=== PATIENT | male | born 1970 | race Caucasian/White ===

== ENCOUNTER 2023-08-02 08:57 | Observation (INO) | payer BC, SELFPAY ==
[2023-08-02] VITALS (25 sets, daily range): BP systolic 126–160; BP diastolic 62–94; PULSE 67–105; RESP 15–24; TEMP 36.7–37.1; O2SAT 96–100; BMI 35.9
--- NOTE | ~2023-08-02 | MR_ITS ---
EXAMINATION: MR brain/brain stem wo/w con DATE: 08/03/2023 10:35 INDICATION: Seizure TECHNIQUE: Magnetic resonance imaging (MRI) of the brain and brainstem was performed without and with 20 mL Multihance intravenous contrast. Sequences included sagittal and axial T1-weighted SE, axial d iffusion-weighted FS SE, axial 3D SWAN, axial T2-weighted FLAIR, and axial T2-weighted FSE. Postcontr ast axial and coronal T1-weighted SE was obtained. Apparent diffusion coefficient (ADC) maps were cre ated. COMPARISON: Head CT dated 08/02/2023 FINDINGS: There are no areas of restricted diffusion to suggest acute infarction. No intracranial hemorrhage or abnormal intracranial mass lesion. There are scattered areas of nonspecific increased T2-weighted si gnal intensity in the cerebral white matter, predominantly involving the deep and periventricular whi te matter. There are no intraparenchymal signal abnormalities seen on the other pulse sequences. The ventricles are symmetric and normal in size. There are no abnormal extra-axial fluid collections. Clyde w voids are seen in the cerebral arteries on the T2-weighted sequences consistent with their expected patency. Visualized orbits and soft tissues are unremarkable. There are no areas of abnormal enhance ment on the post contrast images. IMPRESSION: 1. Normal aging brain. No acute intracranial process or abnormally enhancing brain lesions. Reviewed, dictated and finalized at location A. IMPRESSION: 1. Normal aging brain. No acute intracranial process or abnormally enhancing br ain lesions.
--- NOTE | ~2023-08-02 | CT_ITS ---
EXAMINATION: CT BRAIN W/O DATE: 08/02/2023 09:26 INDICATION: Seizures. TECHNIQUE: Computed tomography (CT) of the head was performed without intravenous contrast. The dose- length product was 605.33 mGy-cm. Automated exposure control and iterative reconstruction technique w ere employed. COMPARISON: No prior studies for comparison. FINDINGS: Mildly decreased brain parenchymal volume for age. Normal zhu-white differentiation. No ac kellen intracranial hemorrhage, infarction, mass or mass effect. Prominent cisterna magna. No ventriculomegaly or midline shift. Midline sagittal images demonstrate a normal corpus callosum, c raniovertebral junction and sella turcica. Basilar cisterns are patent. Paranasal sinuses and mastoids are pneumatized. No depressed skull fractures. IMPRESSION: 1. No acute intracranial abnormality. Reviewed, dictated and finalized at location A.
--- NOTE | 2023-08-02 09:01 | ED.SEIZURE ---
HPI - Seizure General Chief Complaint: Seizure Stated Complaint: SZ Time Seen by Provider: 08/02/23 08:58 History of Present Illness HPI Narrative: Patient is a 52-year-old male who presents ER after having a seizure. Patient was standing at his refrigerator when he began to shake. He then had his arms move into flexion and he fell backwards onto the ground. He had a 1 minute seizure witnessed by significant other. He had loss of urine and was immediately postictal. He did experience tongue biting. No history of previous surgery. Patient reports she has been feeling dizzy and lightheaded and nauseous for several days. He has been unable to sleep over the last 24 hours. No fevers or chills or sweats. Patient has history of melanoma that was excised in 2005 and also had some lymph nodes dissected. Reports he has had no issues since then. Related Data Home Medications Medication Instructions Recorded Confirmed Centrum Silver Men 1 tablet PO DAILY 08/02/23 08/02/23 Allergies Allergy/AdvReac Type Severity Reaction Status Date / Time No Known Allergies Allergy Verified 08/02/23 09:05 Review of Systems Review of Systems: All systems reviewed & are unremarkable except as noted in HPI and below Constitutional: Constitutional: Denies chills and Denies fever(s) ENT: Denies nasal congestion and Denies sore throat Cardiovascular: Cardiovascular: Denies chest pain, Denies rapid heart rate and Denies radiating jaw, neck or arm pain Respiratory: Respiratory: Denies cough and Denies dyspnea Gastrointestinal: Gastrointestinal: Denies abdominal pain, Reports nausea and Denies vomiting Neurologic: Reports dizziness, Denies headache(s), Denies focal weakness and Denies numbness Comments: +Seizure PMFSH Past Medical History Medical History Anemia Dyslipidemia HTN (hypertension), benign Melanoma MARTIN (obstructive sleep apnea) Screening for colon cancer Screening PSA (prostate specific antigen) Transaminitis Surgical History Surgical History History of melanoma excision Social History Social History Smoking status: Never smoker Alcohol intake: former Drinks per week: 12 Substance use: never Lack of Transportation: No Lack of Food: Never True Current Housing: I Have Housing Concerned About Future Housing: No Difficulty Paying Gas/Electric Bills: No Difficulty Paying for Meds: No Currently Unemployed: No Education: High School Diploma/GED Difficulty w/ Childcare or Family Care: No Living arrangements: with family Occupation/Education: occupation Gender identity (if verbalized by the patient): Male Spiritual care concerns: No Exam Narrative: GENERAL: Well-appearing, well-nourished, and in no acute distress. HEAD: Normocephalic, atraumatic. EYES: PERRL and EOMI. ENT: Mucous membranes moist. Evidence of tongue biting without laceration. Dried blood to upper lip. CHEST: Clear to auscultation. No respiratory distress. HEART: Regular rate and rhythm. Normal peripheral pulses. ABDOMEN: Soft, nontender, nondistended. EXTREMITIES: Normal range of motion. No edema. SKIN: Warm, dry, no rash. NEURO: Alert and oriented x3. PSYCH: Normal mood and affect. Course Course Emergency Course: Patient resting comfortably. Informed of results. Discussed case with Dr. Sparrow. Will admit for observation. Started on Keppra. Vital Signs Vital signs: Vital Signs Temperature 98.3 F 08/02/23 08:46 Pulse Rate 100 08/02/23 08:46 Respiratory Rate 16 08/02/23 08:46 Blood Pressure 155/89 H 08/02/23 08:46 Pulse Oximetry 96 08/02/23 08:46 Oxygen Delivery Room Air 08/02/23 08:46 Temperature 98.1 F 08/02/23 14:10 Pulse Rate 84 08/02/23 16:00 Respiratory Rate 16 08/02/23 14:10 Blo
--- NOTE | 2023-08-02 09:07 | ECG_ITS ---
Measurements Intervals [place] Rate: 94 P: 53 NC: 167 QRS: 22 QRSD: 100 T: 51 QT: 382 QTc: 478 Interpretive Statements SINUS RHYTHM WITH SINUS ARRHYTHMIA POSSIBLE LEFT ATRIAL ENLARGEMENT [-0.1mV P WAVE IN V1/V2] NONSPECIFIC ST SEGMENT ABNORMALITY ABNORMAL ECG NO PREVIOUS ECG AVAILABLE FOR COMPARISON Electronically Signed On 08-03-2023 6:56:30 CDT by Lennox Quintana M.D.
[2023-08-02 09:15] LABS: Basophils Percent Auto 0.4 % (0.2-1.2); Eosinophils Percent Auto 0.4 % (0-4.4); Hematocrit 43.5 % (42.0-52.0); Hemoglobin 14.1 g/dL (14.0-18.0); Immature Granulocyte Absolute 0.02 K/mm3 (0.00-0.031); Immature Granulocyte Percent A 0.2 % (0-0.5); Immature Platelet Fraction Pct 3.3 % (0.9-11.2); Lymphocytes Absolute Auto 1.06 K/mm3 (0.9-3.2); Mean Corpuscular HGB Conc 32.4 g/dl (32-36); Mean Corpuscular Hemoglobin 29.1 pg (26-34); Mean Corpuscular Volume 89.7 fl (80-100); Mean Platelet Volume 9.2 fl (7.4-10.4); Monocytes Absolute Auto 0.5 K/mm3 (0.1-0.6); Neutrophils Absolute Auto 6.6 K/mm3 (1.3-6.7); Platelet Count Result 104 k/mm3 (150-375); Red Blood Count 4.85 M/mm3 (4.6-6.20); Red Cell Distribution Width 15.7 % (11.5-14.5); White Blood Count 8.2 K/mm3 (4.5-10.0)
[2023-08-02 09:23] LABS: INR 0.9; Partial Thromboplastin Time 24.9 SECONDS (22.3-36.8); Prothrombin Time 13.1 Seconds (11.1-14.7)
[2023-08-02] MEDS: SODIUM CHLORIDE 0.9% IV 1,000 ML 999 ML IV CONT (09:29)
[2023-08-02 09:52] LABS: Bilirubin,Total 1.6 mg/dL (0.2-1.3)
[2023-08-02 09:54] LABS: Ethanol < 10 mg/dL (<10)
[2023-08-02 10:30] LABS: Bacteria Urine None Seen /hpf; Squamous Epithelial Cell Urine None seen /hpf (Few); WBC Urine 0-5 /hpf
[2023-08-02 10:34] LABS: Appearance Urine Clear (Clear); Bilirubin Urine 1+ (Negative); Blood Urine Negative (Negative); Color Urine Orange (Yellow); Glucose Urine UA Negative (Negative); Ketones Urine 2+ mg/dL (Negative); Leukocyte Esterase Ur Trace LEU/UL (Negative); Nitrate Urine Negative (Negative); Protein Urine 2+ mg/dL (Negative); Specific Grav Ur 1.025 (1.001-1.035); pH Urine 7.5 (5.0-9.0)
[2023-08-02 10:35] LABS: Add Urine Microscopic? YES
[2023-08-02 10:43] LABS: Alanine Aminotransferase 42 U/L (6-50); Albumin Level 4.6 g/dL (3.5-5.1); Alkaline Phosphatase 64 U/L (38-126); Anion Gap 10 mmol/L (8-16); Aspartate Amino Transferase 58 U/L (17-59); Blood Urea Nitrogen 10 mg/dL (9-20); Calcium 9.5 mg/dL (8.4-10.2); Carbon Dioxide 26 mmol/L (22-30); Chloride 99 mmol/L (98-107); Estimated CRCL calculation 165 ml/min; Estimated Glomerular Filt Rate > 60; Glucose 196 mg/dL (65-110); Potassium 3.1 mmol/L (3.4-5.0); Sodium 135 mmol/L (137-145)
[2023-08-02 11:06] LABS: Amphetamine Screen Urine Negative (Negative); Barbiturate Screen Urine Negative (Negative); Benzodiazepines Screen Urine Negative (Negative); Cannabinoid Screen Urine Negative (Negative); Cocaine Screen Urine Negative (Negative); Methadone Screen Urine Negative (Negative); Opiate Screen Urine Negative (Negative); Phencyclidine Screen Urine Negative (Negative)
[2023-08-02] MEDS: levETIRAcetam 1000MG/NACL100ML 1,000 MG/100 ML BAG 400 MG IVPB (11:36)
--- NOTE | 2023-08-02 12:52 | PC.NURSE ---
This patient, Samm Kirkland, was admitted to Medical Room 256-01. Patient/family oriented to hospital policies and general routines including ID bracelet, bed and alarms, visiting hours, pain management, procedures, bathroom and other care routines, personal items, smoking policy, room service/diet, and visiting hours. Information on how to activate the Rapid Response Team has been discussed. Patient/Family are encouraged to report perceived risks to care and to ask questions if they do not understand what they are told or what they should do.
--- NOTE | 2023-08-02 12:56 | PM.IMHP ---
H&P: HPI History of Present Illness Date/Time: 08/02/23 12:56 Chief Complaint: New onset Seizure activity Narrative: This is a 52-year-old male patient with a past history of hypertension high cholesterol and obstructive sleep apnea who is admitted to the hospital for new onset seizure activity. Patient reports that over the last 1 year he has been having problems with recurrent nausea and vomiting and he had a particularly bad episode yesterday. Patient notes that when he has these episodes of vomiting keeping he will often feel shaky. Today patient was in the kitchen trying to put on his shoes whenever he had a witnessed episode of seizure with loss of consciousness full body shaking bit his tongue and incontinent of urine. Patient has never had seizure activity before. Patient's noted that patient was clutching his chest during his seizure activity the patient denies any chest pain shortness a breath at this time. Patient also denies any nausea at this time. He denies any pain or injury. He notes that he felt a lot better this morning than he did the past 2 days so came as a surprise that this would happen today instead of previously. Patient states he has barely had any fluids over the last 2 days and no food. He has also not slept at all in over 2 days. Again no prior episodes of loss of consciousness with full body seizure activity that he is aware of. Patient is intermittently compliant with his blood pressure medications and anticholesterol medication. He does not wear his CPAP any longer. Patient did quit drinking over 6 months ago and has been abstinent since. Previously he states that he was a heavy alcohol user. Patient does not smoke. His only surgery is melanoma removal with lymph node dissection right upper extremity. Review of Systems Review of Systems: All systems reviewed & are unremarkable except as noted in HPI and below PMFSH Past Medical History Medical History Anemia Dyslipidemia HTN (hypertension), benign Melanoma MARTIN (obstructive sleep apnea) Screening for colon cancer Screening PSA (prostate specific antigen) Transaminitis Surgical History Surgical History History of melanoma excision Social History Social History Smoking status: Never smoker Alcohol intake: current Drinks per week: 12 Substance use: never Living arrangements: with family Occupation/Education: occupation Gender identity (if verbalized by the patient): Male Meds Home Medications and Allergies Home Medications Medication Instructions Recorded Confirmed Type amlodipine 5 mg-olmesartan 20 mg 1 tablet PO DAILY #30 tabs 06/16/23 08/02/23 Rx tablet (Karen) nebivolol 10 mg tablet (Bystolic) 10 mg PO DAILY #30 tabs 06/16/23 08/02/23 Rx rosuvastatin 10 mg tablet (Crestor) 10 mg PO DAILY #30 tabs 06/16/23 08/02/23 Rx Centrum Silver Men 1 tablet PO DAILY 08/02/23 08/02/23 History Allergies Allergy/AdvReac Type Severity Reaction Status Date / Time No Known Allergies Allergy Verified 08/02/23 09:05 Vital Signs Vital Signs - 24 hr 08/02/23 08:46 08/02/23 09:08 08/02/23 09:10 Temperature 36.8 C Pulse Rate 100 100 99 Respiratory Rate 16 18 Blood Pressure 155/89 H Pulse Oximetry 96 97 Oxygen Delivery Room Air 08/02/23 09:15 08/02/23 09:16 08/02/23 09:30 Temperature Pulse Rate 100 96 Respiratory Rate 22 H 21 H 23 H Blood Pressure 130/94 H Pulse Oximetry 99 99 96 Oxygen Delivery 08/02/23 09:45 08/02/23 10:00 08/02/23 10:15 Temperature Pulse Rate 94 79 74 Respiratory Rate 19 24 H 22 H Blood Pressure Pulse Oximetry 97 100 100 Oxygen Delivery 08/02/23 10:21 08/02/23 10:30 08/02/23 10:31 Temperature Pulse Rate 83 80 87 Respiratory Rate 15 19 19 Blood Pressure 154/91 H 158/91
[2023-08-02] MEDS: NEBIVOLOL HCL 5 MG TABLET 10 MG PO (15:39)
[2023-08-02] MEDS: SODIUM CHLORIDE 0.9% IV 1,000 ML 100 ML IV CONT ×2 (15:39→20:27)
[2023-08-02] MEDS: amLODIPine BESYLATE 5 MG TABLET PO (15:39)
[2023-08-02] MEDS: OLMESARTAN MEDOXOMIL 20 MG TABLET PO (15:39)
[2023-08-02] MEDS: POTASSIUM CHLORIDE 20 MEQ ER TABLET 40 MEQ PO (17:24)
[2023-08-02] MEDS: levETIRAcetam 500 MG TABLET PO (20:28)
[2023-08-02] MEDS: ROSUVASTATIN 10 MG TABLET PO (20:28)
--- NOTE | 2023-08-02 23:56 | PCRCNOTE ---
Patient states he has obstructive sleep apnea, therefore no reason to do the apnea link. Pt also states he will begin using his cpap again when he goes home. He says it makes him feel better.
[2023-08-03] VITALS (7 sets, daily range): BP systolic 141–144; BP diastolic 84–86; PULSE 68–80; RESP 16–18; TEMP 36.9–37; O2SAT 97–99
[2023-08-03 05:31] LABS: Hematocrit 40.1 % (42.0-52.0); Hemoglobin 12.8 g/dL (14.0-18.0); Mean Corpuscular HGB Conc 31.9 g/dl (32-36); Mean Corpuscular Hemoglobin 29.6 pg (26-34); Mean Corpuscular Volume 92.8 fl (80-100); Mean Platelet Volume 9.6 fl (7.4-10.4); Platelet Count Result 95 k/mm3 (150-375); Red Blood Count 4.32 M/mm3 (4.6-6.20); Red Cell Distribution Width 15.7 % (11.5-14.5)
[2023-08-03 05:39] LABS: Alanine Aminotransferase 33 U/L (6-50); Albumin Level 4.3 g/dL (3.5-5.1); Alkaline Phosphatase 51 U/L (38-126); Anion Gap 10 mmol/L (8-16); Aspartate Amino Transferase 39 U/L (17-59); Bilirubin,Total 1.5 mg/dL (0.2-1.3); Blood Urea Nitrogen 8 mg/dL (9-20); Calcium 9.1 mg/dL (8.4-10.2); Carbon Dioxide 23 mmol/L (22-30); Chloride 103 mmol/L (98-107); Estimated CRCL calculation 189 ml/min; Estimated Glomerular Filt Rate > 60; Glucose 89 mg/dL (65-110); Potassium 3.7 mmol/L (3.4-5.0); Sodium 136 mmol/L (137-145)
[2023-08-03 05:44] LABS: White Blood Count 8.8 K/mm3 (4.5-10.0)
[2023-08-03] MEDS: OLMESARTAN MEDOXOMIL 20 MG TABLET PO (08:58)
[2023-08-03] MEDS: levETIRAcetam 500 MG TABLET PO (08:58)
[2023-08-03] MEDS: NEBIVOLOL HCL 5 MG TABLET 10 MG PO (08:58)
[2023-08-03] MEDS: amLODIPine BESYLATE 5 MG TABLET PO (08:58)
--- NOTE | 2023-08-03 08:59 | WPDNEUROLOGY ---
Neurology EEG Report General Information Date of Study: 08/03/23 TEST Routine EEG DIAGNOSIS New-onset seizure CONDITION OF RECORDING Awake Frequent eye blink artifact EEG NUMBER [id number] CLINICAL HISTORY Patient presented after having a witnessed seizure described as generalized tonic-clonic activity, lasting 3-4 minutes. EEG DESCRIPTION During the awake state with eyes closed the background consists of 9-10 Hz posterior dominant rhythm which attenuates appropriately with eye opening. The recording is continuous. There is a well developed anterior-posterior gradient. No significant asymmetries of background activities are noted. Patient did not enter drowsiness or sleep. There are no epileptiform discharges or seizures during this recording. Hyperventilation and photic stimulation were not performed. IMPRESSION This is a normal routine EEG recorded in awake state. There are no electrographic seizures identified, nor are there any epileptiform discharges. Please note that a normal EEG cannot exclude a seizure disorder. Clinical correlation is recommended.
--- NOTE | 2023-08-03 09:03 | WPDNEURCNPN ---
Assessment and Plan Assessment and plan (1) Seizure: Code(s): R56.9 - Unspecified convulsions Status: Acute Plan Patient with a history of first time seizure. Could have been provoked by sleep deprivation. Routine EEG is normal. Since this is his first time seizure, he does not need to be on a maintenance anti-seizure medication (assuming his MRI is normal). I have discussed this with patient. We also discussed seizure precautions and that he should not be driving or operating heavy machinery until he is seizure free for at least 6 months. MRI brain is pending. If MRI is unrevealing, ok to discharge without anti-seizure medication. If there is encephalomalacia or other finding that would suggest increase risk for seizures in the future, will need to re-consider anti-seizure medication. Will also have him follow-up in outpatient Neurology clinic. Consult date: 08/03/23 Reason for consult: New onset seizure HPI: Samm Kirkland is a 52 year old male with a history of HTN, HLD, MARTIN, melanoma (in remission) presenting for new onset seizure. Patient was standing in the kitchen yesterday morning when he started trembling per . He clutched his chest, fell to the ground, and had generalized tonic clonic movements. His eyes were bulging and he did bite his tongue as well. thinks that the seizure lasted about 3-4 minutes. She did call EMS and he was post-ictal on their arrival. He was taken to [place] [facility] where he was admitted. CT head is unrevealing. Routine EEG is normal. MRI brain done this morning, report is pending. Patient denies any prior history of seizures. There is only family history of epilepsy in paternal grandmother, but this was close to end of life. He denies a history of febrile seizures, meningitis, or significant TBI. He has had several concussions throughout his life. Patient reports that he has not slept well recently and had only slept about 2 hours in the 48hrs prior to the seizure. He also reports poor nutrition and dehydration as well. His UDS during this admission was negative. He is not currently employed. Review of Systems Review of Systems: All systems reviewed & are unremarkable except as noted in HPI and below Psychiatric: Psychiatric: Reports anxiety PMFSH Past Medical History Medical History Anemia Dyslipidemia HTN (hypertension), benign Melanoma MARTIN (obstructive sleep apnea) Screening for colon cancer Screening PSA (prostate specific antigen) Transaminitis Surgical History Surgical History History of melanoma excision Social History Social History Smoking status: Never smoker Alcohol intake: former Drinks per week: 12 Substance use: never Lack of Transportation: No Lack of Food: Never True Current Housing: I Have Housing Concerned About Future Housing: No Difficulty Paying Gas/Electric Bills: No Difficulty Paying for Meds: No Currently Unemployed: No Education: High School Diploma/GED Difficulty w/ Childcare or Family Care: No Living arrangements: with family Occupation/Education: occupation Gender identity (if verbalized by the patient): Male Spiritual care concerns: No Meds Home Medications and Allergies Home Medications Medication Instructions Recorded Confirmed Type amlodipine 5 mg-olmesartan 20 mg 1 tablet PO DAILY #30 tabs 06/16/23 08/02/23 Rx tablet (Karen) nebivolol 10 mg tablet (Bystolic) 10 mg PO DAILY #30 tabs 06/16/23 08/02/23 Rx rosuvastatin 10 mg tablet (Crestor) 10 mg PO DAILY #30 tabs 06/16/23 08/02/23 Rx Centrum Silver Men 1 tablet PO DAILY 08/02/23 08/02/23 History Allergies Allergy/AdvReac Type Severity Reaction Status Date / Time No Known Allergies Allergy Verified 08/02/23 09:05 Vital Signs Vital Signs - 24 hr 08/02/23 09:08
--- NOTE | 2023-08-03 11:59 | PM.IMPN ---
Progress Note: A&P Assessment and Plan (1) Seizure: Code(s): R56.9 - Unspecified convulsions Status: Acute Assessment and Plan: New onset seizure activity. Patient has received Keppra loading dose. We will continue Keppra b.i.d. PRN Ativan for seizure activity. (2) HTN (hypertension), benign: Code(s): I10 - Essential (primary) hypertension Status: Acute Assessment and Plan: Intermittently compliant with home medications. Blood pressure is minimally hypertensive. Will resume home medications or therapeutic substitution. (3) MARTIN (obstructive sleep apnea): Code(s): G47.33 - Obstructive sleep apnea (adult) (pediatric) Status: Acute Assessment and Plan: Patient no longer compliant with CPAP. Will perform apnea link. (4) Thrombocytopenia: Code(s): D69.6 - Thrombocytopenia, unspecified Status: Acute Assessment and Plan: Mild with platelet level 104. SCDs for DVT prophylaxis. Daily labs. Unknown cause/clinical significance. (5) Hypokalemia: Code(s): E87.6 - Hypokalemia Status: Acute Assessment and Plan: Noted on labs, 3.1, ordered 40 mEq KCL x 1 and will check with daily labs Plan Admit to [facility], observation status Neurology consult, called by ER MRI EEG Apnea Link, patient no longer uses his CPAP Keppra BID, appreciate recommendations from Neurology PRN Ativan for seizure and seizure precautions Ambulate with assistance Resume home medications/therapeutic substitutions SCDs-avoid anticoagulants due to mild thrombocytopenia, at least until improved Subjective Date/time seen: 08/03/23 11:59 Objective Data Vital Signs Vital Signs: Vital Signs - 24 hr 08/02/23 12:41 08/02/23 14:10 08/02/23 15:39 Temperature 98.1 F Pulse Rate 86 105 H 86 Respiratory Rate 16 16 Blood Pressure 146/79 H 148/92 H Pulse Oximetry 99 99 Oxygen Delivery 08/02/23 13:34 08/02/23 13:00 08/02/23 16:00 Temperature Pulse Rate 95 84 Respiratory Rate Blood Pressure Pulse Oximetry Oxygen Delivery Room Air 08/02/23 13:00 08/02/23 19:53 08/02/23 20:18 Temperature 98.8 F 98.2 F Pulse Rate 96 78 80 Respiratory Rate 16 18 18 Blood Pressure 126/62 138/79 Pulse Oximetry 98 100 99 Oxygen Delivery Room Air 08/02/23 20:00 08/03/23 00:00 08/03/23 04:00 Temperature Pulse Rate 67 72 68 Respiratory Rate Blood Pressure Pulse Oximetry Oxygen Delivery 08/03/23 05:28 08/03/23 08:30 08/03/23 09:40 Temperature 98.5 F 98.6 F Pulse Rate 73 80 Respiratory Rate 18 16 Blood Pressure 144/86 H 141/84 H Pulse Oximetry 99 98 97 Oxygen Delivery Room Air Intake/Output Intake/Output: Intake & Output 07/31/23 08/01/23 08/02/23 08/03/23 23:59 23:59 23:59 23:59 Intake Total 2450 590 Output Total 200 Balance 2250 590 Meds/Results Medications: Active Medications Generic Name Dose Route Start Last Admin Trade Name Freq PRN Reason Stop Dose Admin Acetaminophen 650 mg 08/02/23 13:43 Acetaminophen 325 Mg Tablet PO Q4H PRN Pain Rated 5 or Less Hydrocodone Bitart/Acetaminophen 1 tab 08/02/23 13:43 Hydrocodone/Acetaminophen (*Crx) 5-325 Mg Tablet PO Q4H PRN Pain Rated 6 or Greater Amlodipine Besylate 5 mg 08/02/23 13:45 08/03/23 08:58 Amlodipine Besylate 5 Mg Tablet PO 5 mg QAM WILBER Administration Sodium Chloride 1,000 mls @ 100 mls/hr 08/02/23 13:35 08/02/23 20:27 Normal Saline Iv IV CONT 100 mls/hr .Q10H WILBER Administration Levetiracetam 500 mg 08/02/23 21:00 08/03/23 08:58 Levetiracetam 500 Mg Tablet PO 500 mg Q12HR WILBER Administration Lorazepam 4 mg 08/02/23 13:35 Lorazepam Inj (*Crx) 2 Mg/Ml Vial IV PUSH Q6H PRN seizures Nebivolol 10 mg 08/02/23 13:45 08/03/23 08:58 Nebivolol Hcl 5 Mg Tablet PO 10 mg DAILY WILBER Administration Olmesartan 20 mg 08/02/23 13:45 08/03/23 0
--- NOTE | 2023-08-03 14:17 | PM.DS ---
DS: Admitting Diagnosis Discharge Date 08/03/23 Admitting Diagnosis seizure DS: Discharge Diagnosis Discharge Diagnosis (1) Seizure: Code(s): R56.9 - Unspecified convulsions Status: Acute Assessment and Plan: New onset seizure activity. Patient has received Keppra loading dose. We will continue Keppra b.i.d. PRN Ativan for seizure activity. (2) HTN (hypertension), benign: Code(s): I10 - Essential (primary) hypertension Status: Acute Assessment and Plan: Intermittently compliant with home medications. Blood pressure is minimally hypertensive. Will resume home medications or therapeutic substitution. (3) MARTIN (obstructive sleep apnea): Code(s): G47.33 - Obstructive sleep apnea (adult) (pediatric) Status: Acute Assessment and Plan: Patient no longer compliant with CPAP. Will perform apnea link. (4) Thrombocytopenia: Code(s): D69.6 - Thrombocytopenia, unspecified Status: Acute Assessment and Plan: Mild with platelet level 104. SCDs for DVT prophylaxis. Daily labs. Unknown cause/clinical significance. (5) Hypokalemia: Code(s): E87.6 - Hypokalemia Status: Acute Assessment and Plan: Noted on labs, 3.1, ordered 40 mEq KCL x 1 and will check with daily labs Plan [facility] to [facility], observation status Neurology consult, called by ER MRI EEG Apnea Link, patient no longer uses his CPAP Keppra BID, appreciate recommendations from Neurology PRN Ativan for seizure and seizure precautions Ambulate with assistance Resume home medications/therapeutic substitutions SCDs-avoid anticoagulants due to mild thrombocytopenia, at least until improved DS: Summary Hospital Course Hospital Course: 52-year-old male patient with a past history of hypertension high cholesterol and obstructive sleep apnea who is admitted to the hospital for new onset seizure activity.? Patient with a history of first time seizure. Could have been provoked by sleep deprivation. Routine EEG is normal. Since this is his first time seizure, he does not need to be on a maintenance anti-seizure medication. I have discussed this with patient. We also discussed seizure precautions and that he should not be driving or operating heavy machinery until he is seizure free for at least 6 months. MRI brain was normal. Please see above and med rec for details. Patient was discharged in stable condition with close outpatient follow-up and recommended to get more sleep. Time Spent with Patient Time attestation: Total time spent providing and/or coordinating discharge services: Exam Narrative: General: No acute distress, alert and oriented per baseline HEENT: Atraumatic, normocephalic, mucous membranes moist CV: Regular rate and rhythm, S1, S2 Lungs: Clear to auscultation bilaterally, no rales or crackles noted, no wheezes, good air entry Abdomen: Soft, nontender, nondistended Extremities: Normal to inspection Skin: No rashes noted, no lesions or wounds seen Psych: Euthymic, normal affect DS: Data Data Completed and Pending Labs on day of discharge: Labs from last 24 hours 08/03/23 04:54 WBC 8.8 RBC 4.32 L Hgb 12.8 L Hct 40.1 L MCV 92.8 MCH 29.6 MCHC 31.9 L RDW 15.7 H Plt Count 95 L MPV 9.6 % Immature Plt Fraction 5.0 Sodium 136 L Potassium 3.7 Chloride 103 Carbon Dioxide 23 Anion Gap 10 BUN 8 L Creatinine 0.50 L Estim Creat Clear Calc 189 Estimated GFR > 60 Glucose 89 Calcium 9.1 Total Bilirubin 1.5 H AST 39 ALT 33 Alkaline Phosphatase 51 Total Protein 8.0 Albumin 4.3 Discharge Plan Discharge Attending physician on discharge: Xenia Segovia Consulting providers: Refugio Sparrow Discharging Clinician: Xenia Segovia Patient Disposition: Home, Self-Care Activity: as tolerated Diet: as tolerated Patient Instructions: Antibiotic Form, Hypokalemia (DC), Epilepsy (DC) Stand A
--- NOTE | 2023-08-03 15:23 | PC.NURSE ---
Assessment, care and medications performed by Karey DONOHUE Student RN under supervision of instructor and hospital staff. Assessment reviewed and agree with same.
== END 2023-08-03 14:43 | disposition home or self-care (01) ==
LOC: ANHED 09:40 → ANH2MED 12:51
PROVIDERS: Nurse Practitioner; Admitting Provider Internal Medicine; Emergency Provider Emergency Medicine; PCP Physician Assistant Medical; Visit Provider Student in an Organized Health Care Education/Training Program
DX: R56.9 Unspecified convulsions (principal); I10 Essential (primary) hypertension; G47.33 Obstructive sleep apnea (adult) (pediatric); D69.6 Thrombocytopenia, unspecified; E87.6 Hypokalemia; E78.5 Hyperlipidemia, unspecified; R94.31 Abnormal electrocardiogram [ECG] [EKG]; Z87.820 Personal history of traumatic brain injury; Z85.820 Personal history of malignant melanoma of skin; Z82.0 Family history of epilepsy and other diseases of the nervous system
CPT/HCPCS: 36415; 70450; 70553; 80053; 80307; 81001; 85025; 85027; 85055; 85610; 85730; 93005; 95816; 96361; 96365; 99285; A9270; A9577; G0378; J1953; J7030

== ENCOUNTER 2024-05-17 08:30 | Outpatient (RCR) | payer OTHER, SELFPAY ==
--- NOTE | 2024-04-12 17:15 | PTOPEVAL1 ---
Assessment and note entered by Elvia Mac, PT Evaluation Information Assessment Status Evaluation Diagnosis R42 Onset approx 10 yrs ago, started having discomfort with heights Subjective Information Pt reports that going back down from being up on tall surfaces is worse, has some hesitation going down the steps to basement, reports tripping over and falling when going down the stairs. had 1 episode where he had seizure and fell. States that he feels disoriented to space and when looking down he feels unbalanced and unsteady lasts as long as he is moving, describes it like a motion sickness sensation. Denies being nauseated or sick to the stomach. Reported Pain Level Pain Score 0: Self Report Assessment PT Clinical Summary Pt presents to therapy with unsteadiness and dizziness with positional changes, disorientation with visual changes and looking down impacting his ability to ambulate going down the stairs and performing bed mobility. He will greatly benefit from skilled PT to improve quality of life and reduce discomfort with movement. Plan of Care Interventions Patient/Caregiver Educati,Therapeutic Activities, Therapeutic Exercise Other Interventions Dynamic Vestibular Rehab PT Services Indicated Yes Treatment Frequency and 2x/wk x 10 visits Duration These treatments will address the objective and functional deficits as defined above. The patient will be advanced safely and appropriately in order for the patient to progress towards his/her prior level of function. Additional exercises will be introduced and as well as a comprehensive home exercise program upon discharge, if needed, ?to ensure carryover of functional gains achieved in the clinic. This treatment plan has been reviewed and agreement upon by the patient.
--- NOTE | 2024-05-13 08:01 | PCPTNOTE ---
Pt was a no show for his appointment on 05/12/2024
--- NOTE | 2024-05-20 11:04 | PTOPDC ---
Assessment and note entered by Elvia Mac, PT Discharge Information Assessment Status Discharge Diagnosis R42 ICD-10 Condition Codes (PT) Weakness R53.1,Dizziness & Giddiness R42 Onset approx 10 yrs ago, started having discomfort with heights Subjective Information Pt reports feeling a severe dizziness last and over the weekend, experiencing nausea together with the dizziness during the weekend. States he notice nausea before dizziness flare-ups Feels like therapy has been helpful with his balance issues but has not helped with the dizziness. Assessment PT Clinical Summary Pt has received a total of 8 PT sessions, performed Alessandra maneuver multiple trials without relief of symptoms, noted horizontal downbeat nystagmus during one of the treatment sessions, pt is then referred to get neurologist consultation for further vestibular assessment. Pt also received balance training and gaze stabilization training, education and fall prevention techniques which allowed improved safety at home and environment. Pt denies any recent falls since starting with therapy. PT discontinued at this time due to no resolution of the dizziness, awaiting neuro appointment. Plan of Care PT Services Indicated No
== END 2024-05-20 14:10 | disposition home or self-care (01) ==
LOC: ANHHIPT 08:30
PROVIDERS: PCP Physician Assistant Medical; Visit Provider Physician Assistant Medical
DX: R42 Dizziness and giddiness (principal)
CPT/HCPCS: 95992; 97110; 97112; 97161; 97530; 97750

== ENCOUNTER 2024-08-05 01:05 | Day surgery (SDC) | payer OTHER, SELFPAY ==
[2024-07-29 12:49] VITALS: BMI 36.8
[2024-08-05 11:06] VITALS: BP 163/90; PULSE 83; RESP 20; TEMP 36.6; O2SAT 97; BMI 36.1
[2024-08-05] MEDS: LACTATED RINGERS 1,000 ML 150 ML IV CONT (11:18)
--- NOTE | 2024-08-05 11:22 | PM.HPGS ---
History of Present Illness History of Present Illness Consent: Risks, benefits, and alternatives have been discussed and questions answered. Patient agrees to proceed with procedure. Chief complaint: screening colon,cyclical vomiting, epigastric pain Narrative: Samm Kirkland is a 53 year old male with cyclic episodes of n/v with discomfort, using pantoprazole daily. Never had scopes. Denies use of marijuana. 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 MARTIN (obstructive sleep apnea) Screening for colon cancer Screening PSA (prostate specific antigen) Transaminitis Surgical History Surgical History History of melanoma excision Social History Social History (Updated 05/18/24 @ 13:59 by Esther Curry) Social History: 05/19/24 Pt declined to complete SDOH Smoking status: Never smoker Alcohol intake: former Drinks per week: 20 Alcohol use details: stopped 2022 Substance use: never Substance use type: does not use Lack of Transportation: No Lack of Food: Never True Current Housing: I Have Housing Concerned About Future Housing: No Difficulty Paying Gas/Electric Bills: No Difficulty Paying for Meds: No Currently Unemployed: No Education: High School Diploma/GED Difficulty w/ Childcare or Family Care: No Living arrangements: with family Occupation/Education: occupation Gender identity (if verbalized by the patient): Male Spiritual care concerns: No Meds Home Medications and Allergies Home Medications Medication Instructions Recorded Confirmed Type pantoprazole 40 mg tablet,delayed 40 mg PO QAM #90 tabs 12/28/23 08/05/24 Rx release amlodipine 5 mg tablet 5 mg PO DAILY #90 tabs 05/19/24 08/05/24 Rx bisoprolol fumarate 10 mg tablet 10 mg PO DAILY #90 tabs 05/19/24 08/05/24 Rx ezetimibe 10 mg tablet (Zetia) 10 mg PO DAILY #90 tabs 05/19/24 08/05/24 Rx olmesartan 20 mg tablet 20 mg PO DAILY #90 tabs 05/19/24 08/05/24 Rx ondansetron 4 mg disintegrating 4 mg PO Q8H PRN nausea and 05/19/24 08/05/24 Rx tablet vomiting #30 tabs Allergies Allergy/AdvReac Type Severity Reaction Status Date / Time rosuvastatin [From Crestor] AdvReac myalgia Verified 08/05/24 11:05 Vital Signs Vital Signs - 24 hr 08/05/24 11:06 Temperature 97.8 F Pulse Rate 83 Respiratory Rate 20 Blood Pressure 163/90 H Pulse Oximetry 97 Oxygen Delivery Room Air Exam Const: General: comfortable and no acute distress HENMT: Face/Nose/Sinus: Normal nares present Eyes: General: appearance normal, both eyes and all related structures Neck: Neck: no JVD Resp: Auscultation: clear to auscultation bilaterally Cardio: Rate: regular rate Rhythm: regular rhythm GI: Inspection: non-distended GI Palp: Yes Soft to palpation Skin: General skin exam: normal color Neuro: General: gait normal Speech: normal speech Extrem: General: normal to inspection Psych: Mental Status: mental status grossly normal Assessment and Plan Assessment and plan (1) Cyclical vomiting: Code(s): R11.15 - Cyclical vomiting syndrome unrelated to migraine Status: Acute Assessment and Plan: egd with bx (2) Epigastric discomfort: Code(s): R10.13 - Epigastric pain Status: Acute (3) Screening for colon cancer: Code(s): Z12.11 - Encounter for screening for malignant neoplasm of colon Status: Acute Assessment and Plan: colonoscopy
--- NOTE | 2024-08-05 11:37 | P.PNAN_ITS ---
Anes - Initial Pre Proc Eval Procedure: Operation Date: 08/05/24 13:00 Proposed Procedures p Esophagogastroduodenoscopy&Screen Colon - J Luis Mortensen MD Date/Time: 08/05/24 11:37 Surgeon: J Luis Mortensen MD Pre Op Diagnosis: screening colon,cyclical vomiting, epigastric pain Patient Data Age: 53 Gender: M Height: 1.8 m Weight: 117.5 kg Last Vital Signs Temp 97.8 F 08/05/24 11:06 Pulse 83 08/05/24 11:06 Resp 20 08/05/24 11:06 BP 163/90 H 08/05/24 11:06 Pulse Ox 97 08/05/24 11:06 O2 Del Method Room Air 08/05/24 11:06 Allergies Allergy/AdvReac Type Severity Reaction Status Date / Time rosuvastatin [From Crestor] AdvReac myalgia Verified 08/05/24 11:05 Home Medications Medication Instructions Recorded Confirmed Type pantoprazole 40 mg tablet,delayed 40 mg PO QAM #90 tabs 12/28/23 08/05/24 Rx release amlodipine 5 mg tablet 5 mg PO DAILY #90 tabs 05/19/24 08/05/24 Rx bisoprolol fumarate 10 mg tablet 10 mg PO DAILY #90 tabs 05/19/24 08/05/24 Rx ezetimibe 10 mg tablet (Zetia) 10 mg PO DAILY #90 tabs 05/19/24 08/05/24 Rx olmesartan 20 mg tablet 20 mg PO DAILY #90 tabs 05/19/24 08/05/24 Rx ondansetron 4 mg disintegrating 4 mg PO Q8H PRN nausea and 05/19/24 08/05/24 Rx tablet vomiting #30 tabs Patient hx anesthesia problems: none Family hx anesthesia problems: none Results Review: All pre-operative results and documents have been reviewed as part of the pre- operative evaluation. 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 CoA reductase inhibitor MARTIN (obstructive sleep apnea) Screening for colon cancer Screening PSA (prostate specific antigen) Transaminitis Surgical History Surgical History History of melanoma excision Social History Social History Social History: 05/19/24 Pt declined to complete SDOH Smoking status: Never smoker Alcohol intake: former Drinks per week: 20 Alcohol use details: stopped 2022 Substance use: never Substance use type: does not use Lack of Transportation: No Lack of Food: Never True Current Housing: I Have Housing Concerned About Future Housing: No Difficulty Paying Gas/Electric Bills: No Difficulty Paying for Meds: No Currently Unemployed: No Education: High School Diploma/GED Difficulty w/ Childcare or Family Care: No Living arrangements: with family Occupation/Education: occupation Gender identity (if verbalized by the patient): Male Spiritual care concerns: No Anes - Eval Final PreProcedure Day of Procedure 08/05/24 11:37 Patient weight: obese Heart: regular rate and rhythm Lungs: clear to auscultation Airway: Mallampati scale class II Neurological: alert and oriented Last oral intake: >/= 8 hours ASA classification: III Emergent: no Anesthetic plan: proceed Anesthesia type and monitoring: general GIVS and standard monitoring Results Review: All pre-operative results and documents have been reviewed as part of the pre- operative evaluation. HTN, hyperlipidemia, MARTIN but noncompliant w CPAP. Informed Consent: The patient's anesthetic plan and its attendant risks and benefits were discussed with the patient/family/POA. Questions were solicited and answers provided to the satisfaction of the patient/family/POA.
--- NOTE | 2024-08-05 12:03 | SUR.OPER ---
EGD START 1144, END 1149 COLONOSCOPY START 1154, END 1203
[2024-08-05 12:04] VITALS: BP 130/72; PULSE 83; RESP 24; O2SAT 98
[2024-08-05 12:14] VITALS: BP 137/80; PULSE 70; RESP 26; O2SAT 97
[2024-08-05 12:24] VITALS: BP 144/86; PULSE 69; RESP 21; O2SAT 100
== END 2024-08-05 12:29 | disposition home or self-care (01) ==
PROVIDERS: PCP Physician Assistant Medical; Referring Provider Physician Assistant Medical; Visit Provider Internal Medicine Gastroenterology
PROC: 0DJ08ZZ Inspection of Upper Intestinal Tract, Via Natural or Artificial Opening Endoscopic (ICD-10-PCS; CPT 43235; principal; 2024-08-05 13:00)
DX: Z12.11 Encounter for screening for malignant neoplasm of colon (principal); K57.30 Diverticulosis of large intestine without perforation or abscess without bleeding; K29.50 Unspecified chronic gastritis without bleeding; D64.9 Anemia, unspecified; E78.5 Hyperlipidemia, unspecified; I10 Essential (primary) hypertension; G47.33 Obstructive sleep apnea (adult) (pediatric); E66.9 Obesity, unspecified; Z68.36 Body mass index [BMI] 36.0-36.9, adult; Z85.828 Personal history of other malignant neoplasm of skin
CPT/HCPCS: 43239; 45378; 88305; J2704; J7120

== ENCOUNTER 2024-11-29 08:55 | Outpatient (CLI) | payer OTHER, SELFPAY ==
--- NOTE | 2024-11-29 11:00 | NEURO_ITS ---
Impression: # Complains of numbness of feet. Known diabetic. ? # Normal Nerve Conduction Study. ? # Normal needle/EMG exam. ? # Clinical correlation recommended. Could be related to small fiber neuropathy. Nerve Conduction Studies Anti Sensory Summary Table ?Stim Site NR Peak (ms) P-T Amp (?V) Site1 Site2 Delta-P (ms) Dist (cm) [place] (m/s) Left Sup Fibular Anti Sensory (Ant Lat Mall) 14 cm ? 3.6 5.7 14 cm Ant Lat Mall 3.6 16.0 44 Right Sup Fibular Anti Sensory (Ant Lat Mall) 14 cm ? 3.3 10.0 14 cm Ant Lat Mall 3.3 16.0 48 Left Sural Anti Sensory (Lat Mall) Calf ? 3.7 18.2 Calf Lat Mall 3.7 16.0 43 Right Sural Anti Sensory (Lat Mall) Calf ? 3.5 12.5 Calf Lat Mall 3.5 16.0 46 Motor Summary Table ?Stim Site NR Onset (ms) O-P Amp (mV) Site1 Site2 Delta-0 (ms) Dist (cm) [place] (m/s) Left Peroneal Motor (Vastus Med) Ankle ? 4.1 4.4 Popit Ankle 9.6 42.0 44 Popit ? 13.7 3.5 Right Peroneal Motor (Vastus Med) Ankle ? 3.9 4.2 Popit Ankle 9.4 41.0 44 Popit ? 13.0 3.4 Left Tibial Motor (Abd Quintana Brev) Ankle ? 4.3 6.2 Knee Ankle 8.9 43.0 48 Knee ? 13.2 3.9 Right Tibial Motor (Abd Quintana Brev) Ankle ? 4.2 6.7 Knee Ankle 9.3 42.0 45 Knee ? 13.5 3.5 F Wave Studies ?NR F-Lat (ms) L-R F-Lat (ms) Left Peroneal (Mrkrs) (EDB) ? 58.50 1.17 Right Peroneal (Mrkrs) (EDB) ? 59.67 1.17 Left Tibial (Mrkrs) (Abd Hallucis) ? 57.63 0.38 Right Tibial (Mrkrs) (Abd Hallucis) ? 58.02 0.38 EMG ?Side Muscle Nerve Root Ins Act Fibs Amp Dur Recrt Comment Right AntTibialis Dp Br Fibular L4-5 Nml Nml Nml Nml Nml Right Gastroc Tibial S1-2 Nml Nml Nml Nml Nml Right Fibularis Long Sup Br Fibular L5-S1 Nml Nml Nml Nml Nml Right Flex Dig Long Tibial L5-S2 Nml Nml Nml Nml Nml Right Ext Dig Brev Dp Br Fibular L5, S1 Nml Nml Nml Nml Nml Right QuadratusFem QuadFemoris L4-5, S1 Nml Nml Nml Nml Nml Left AntTibialis Dp Br Fibular L4-5 Nml Nml Nml Nml Nml Left Gastroc Tibial S1-2 Nml Nml Nml Nml Nml Left Fibularis Long Sup Br Fibular L5-S1 Nml Nml Nml Nml Nml Left Flex Dig Long Tibial L5-S2 Nml Nml Nml Nml Nml Left Ext Dig Brev Dp Br Fibular L5, S1 Nml Nml Nml Nml Nml Left QuadratusFem QuadFemoris L4-5, S1 Nml Nml Nml Nml Nml ?? MTDD
== END 2024-11-29 08:56 | disposition home or self-care (01) ==
PROVIDERS: PCP Physician Assistant Medical; Visit Provider Psychiatry & Neurology Neurology
DX: G62.9 Polyneuropathy, unspecified (principal); E11.9 Type 2 diabetes mellitus without complications; R41.3 Other amnesia; R42 Dizziness and giddiness; R11.15 Cyclical vomiting syndrome unrelated to migraine; I10 Essential (primary) hypertension
CPT/HCPCS: 95886; 95910